=== PATIENT | male | born 1945 | race Caucasian/White ===

== ENCOUNTER → 2016-04-13 | Outpatient (CLI) | payer MEDICARE, OTHER ==
--- NOTE | 2016-04-14 08:52 | MRI ---
EXAM DESCRIPTION: MRI left shoulder. CLINICAL HISTORY: Shoulder pain. Osteoarthritis COMPARISON: None Available. TECHNIQUE: Multi planar, multi sequence MRI evaluation of the left shoulder. FINDINGS: Severe osteoarthritis of the left shoulder. Minimal subluxation of the humeral head relative to the central axis of the glenoid and scapular body. Central scalloping of the glenoid, mild type A2 with circumferential labral degeneration. Full-thickness chondral loss with a couple of small subchondral cysts. Full-thickness chondral loss over the entire humeral head with a 7 mm osteophyte arising from the inferior medial humeral head Supraspinatus tendinosis with moderate grade partial articular and interstitial tear of the mid to posterior tendon. Muscle volume is mildly decreased with grade 1 fatty infiltration Infraspinatus tendinosis with chronic interstitial fissuring at insertion. Resorptive cystic change along the oblique facet greater tuberosity. Mild muscle volume loss with grade 2 fatty infiltration of the muscle Teres minor tendon intact. Mild muscle volume loss with grade 2 fatty infiltration of the muscle Severe subscapularis tendinosis with partial articular and interstitial insertional tear of the upper half of the tendon. The muscle volume is mildly decreased with grade 1 fatty infiltration Subluxation of the long head biceps tendon related to the subscapularis tendon tear with severe tendinosis and interstitial partial tear of the entire intra-articular portion of the tendon and in the upper bicipital groove. Contiguous tear involves the labral anchor and superior labrum. Moderate acromioclavicular osteoarthritis with osteophytes indenting the supraspinatus. Small joint effusion. Lateral downsloping of the acromion IMPRESSION: Severe glenohumeral osteoarthritis with medial/ central glenoid scalloping, type A2 Supraspinatus and infraspinatus tendinosis with partial thickness tear at the insertion High-grade partial articular and interstitial tear of the upper subscapularis tendon insertion with associated biceps tendon subluxation. Severe tendinosis and interstitial partial tear of the long head biceps tendon Electronically signed by: Jesse New MD 04/14/2016 08:50
--- NOTE | 2016-04-14 08:58 | MRI ---
EXAM DESCRIPTION: MRI right shoulder. CLINICAL HISTORY: Shoulder pain. Osteoarthritis. COMPARISON: None Available. TECHNIQUE: Multi planar, multi sequence MRI evaluation of the right shoulder. FINDINGS: Severe glenohumeral osteoarthritis with central glenoid scalloping, severe type B2 glenoid. Complete cartilage loss over the entire humeral head with inferior medial humeral head osteophyte projecting about 15 mm into the axillary recess. Small joint effusion with synovitis and several small intra-articular bodies in the dependent posterior joint, axillary recess and 1 in the subcoracoid recess Supraspinatus insertional tendinosis with chronic interstitial low-grade partial tear. The muscle volume is moderately decreased with mild grade 2 fatty infiltration Infraspinatus tendinosis and chronic interstitial fissuring with small resorptive cysts along the oblique facet greater tuberosity anteriorly. Mild muscle volume loss with grade 2 fatty infiltration. Teres minor tendon intact with mild muscle volume loss and grade 1 fatty infiltration Subscapularis tendinosis with moderate grade partial interstitial insertional tear. Muscle volume mildly decreased with grade 2 fatty infiltration Biceps tendinosis and interstitial partial tear of the intra-articular portion of the tendon contiguous with tear involving the labral anchor and superior labrum. Circumferential degenerative labral tear Moderate acromioclavicular osteoarthritis with joint effusion and prominent osteophytes indenting the supraspinatus. IMPRESSION: Severe glenohumeral osteoarthritis with type A2 glenoid. Joint effusion, synovitis and multiple small intra-articular bodies Supraspinatus, infraspinatus and subscapularis chronic tendinosis and interstitial partial tear. Volume loss with grade 2 fatty infiltration of the muscles Intra-articular biceps tendinosis/ interstitial partial tear Electronically signed by: Jesse New MD 04/14/2016 08:56
== END | disposition home or self-care (01) ==
LOC: MRI 12:57
PROVIDERS: ATTEND Orthopaedic Surgery
DX: M19.012 Primary osteoarthritis, left shoulder (principal); M19.011 Primary osteoarthritis, right shoulder

== ENCOUNTER → 2019-03-14 | Outpatient (CLI) | payer MEDICARE, OTHER ==
--- NOTE | 2019-03-14 16:43 | RAD ---
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 TECHNIQUE: 1 view. AP supine. Abdomen and pelvis. FINDINGS: 3 well- radiodense objects most likely a cluster of renal stones superimposed over the left renal shadow measuring 1.4 x 1.1 cm. For all 3 stones. Fecal matter throughout the included colon mostly proximal and mid colon more gas distal colon. No distended gas-filled segments of small bowel or colon. Radiodense object approximately 1 cm diameter superimposed over the inferior cecum. Calcifications in surgical clips in the pelvis. Lumbar levoscoliosis. Upper lumbar dextroscoliosis. Multiple enthesophytes on the pelvis. Arthrosis and joint space narrowing more on the right hip than the left.. IMPRESSION: Cluster of 3 radiodense stones superimposed over the upper left renal shadow. Correlate with clinical history. Constipation proximal and mid colon. No gas-filled distended segments of bowel. Diffuse spondylosis and scoliosis in the lumbar spine. Electronically signed by: Jose Gurrola MD 03/14/2019 4:41 PM PLACEMENT INTERVIEWER
== END ==
LOC: RAD 12:54
PROVIDERS: ATTEND Urology
DX: C61 Malignant neoplasm of prostate (principal); C67.2 Malignant neoplasm of lateral wall of bladder; N52.9 Male erectile dysfunction, unspecified; N40.1 Benign prostatic hyperplasia with lower urinary tract symptoms; N20.0 Calculus of kidney; K59.00 Constipation, unspecified; M47.896 Other spondylosis, lumbar region; M41.86 Other forms of scoliosis, lumbar region

== ENCOUNTER → 2019-04-24 | Outpatient (CLI) | payer MEDICARE, OTHER ==
--- NOTE | 2019-04-26 17:36 | MRI ---
EXAM DESCRIPTION: Lumbar Spine w/o Contrast : Magnetic Resonance Imaging. CLINICAL HISTORY: spondylolysis COMPARISON: MRI scan lumbar spine without contrast February 2016. TECHNIQUE: Multiplanar, multiple standard sequences, non contrast MRI, lumbar spine. FINDINGS: L5-S1: The disc is well visualized on axial T2 series 501, image 3. Moderate disc space loss with mild endplate reactive changes. Desiccated disc gas in the disc space. Anterior bulging and spurs. Grade 1 retropulsion 5 mm. Disc remnant bulge is posterior to the superior S1 endplate impressing on the right subarticular recess and the right S1 nerve. Similar appearance on the prior study. No significant degenerative changes in the posterior flavum ligaments and facet joints (posterior elements). No canal stenosis. Severe right foraminal narrowing and left foraminal stenosis with disc spur complex encroaching on the left foramen and left L5 nerve. L4-L5: Disc desiccation and minimal disc space loss more to the right of midline with endplate Schmorl's nodes and moderate reactive changes. Disc spur complex encroaching on the foramen which is severely narrowed, abutting the right L5 nerve. No posterior disc bulge. Grade 1 anterolisthesis 4 mm. Moderate degenerative hypertrophy of the posterior elements more on the right. AP canal diameter 11 mm. Moderate narrowing left foramen moderate to severe narrowing right foramen with disc spur complex encroaching on the foramen and abutting the right L4 nerve. Calcification versus desiccated disc gas in the disc. No change from the prior study. L3-L4: Disc desiccation with anterior bulging and endplate ridging. Grade 1 retrolisthesis 2 mm. Posterior broad-based disc bulge. Moderate degenerative hypertrophy of the posterior elements more right than left. Right posterior protrusion of the disc migrating downward with stenosis of the right subarticular recess and encroachment on the right L4 nerve. Broad mild endplate reactive changes posteriorly and right of midline. Disc spur complex and hypertrophic facet encroaching on the right foramen with mild stenosis. Significant progression since the prior study. Mild to moderate narrowing of the left foramen. L2-L3: Significant disc space loss in the midline more than the left paramedian upper right paramedian disc space. Anterior and superior Schmorl's nodes. Midline and right of midline moderate endplate reactive changes. Anterior disc bulge with endplate spurs. Posterior midline disc bulge 4 mm with inferior midline tiny disc extrusion impressing on the thecal sac and abutting the descending left L3 nerve. Degenerative hypertrophy of the posterior elements bilaterally. AP canal diameter 10 mm. Mild right foraminal narrowing. Disc osteophyte complex encroaching on the left foramen and the left L2 nerve with borderline stenosis. Stable since the prior study. L1-L2: Disc desiccation with disc space maintained and no bulging. Degenerative hypertrophy of the posterior elements. No bulging. Canal and foramina are patent. Conus terminates at this level. No change from the prior study. Circumscribed hyperintense T1 and T2 hemangioma posterior L1 vertebral body stable. T12-L1: Normal signal in the disc with disc space preserved. Minimal hypertrophic degeneration of the posterior elements. Canal and foramina are patent. Stable since the prior study. L3-S1 levoscoliosis. Paravertebral soft tissues minimal paraspinal muscle atrophy.. Distal cord normal signal and caliber. Otherwise heterogeneous marrow signal in the remaining vertebral bodies and the posterior elements. Vertebral bodies are not compressed at any level. IMPRESSION: 1. Multiple levels of disc desiccation, disc space loss, degenerative hypertrophy of the posterior flavum ligaments and facet joints, bulging discs, and bilateral or lateral spondylosis. 2. Left side spondylosis L5-S1 with disc spur complex encroaching on the left foramen and left L5 nerve. Grade 1 retrolisthesis. Disc remnant bulge posteriorly into the right impressing on the right subarticular recess. No change from the prior study. 3. Spondylosis at L4-5 with posterior element degenerative hypertrophy and right side spondylosis with disc spur complex encroaching on the foramen and the right L4 nerve. Stable since the prior study. 4. Spondylosis posteriorly into the right of midline has progressed significantly since the prior study with right side disc spur complex and hypertrophic right facet joint encroaching on the right foramen and right L3 nerve with mild stenosis. Also stenosis of the right subarticular recess and encroachment on the right L4 nerve, unfavorable interval change since the prior study. 5. Borderline mild central canal stenosis at L2-3 with midline and right paracentral spondylosis and possible posterior midline extruded disc inferiorly. No significant change. Disc space loss has increased since the prior study. Electronically signed by: Jose Gurrola MD 04/26/2019 5:35 PM TRICHOLOGIST
== END ==
LOC: MRI 13:30
PROVIDERS: ATTEND Pain Medicine Interventional Pain Medicine
DX: M43.06 Spondylolysis, lumbar region (principal); M47.817 Spondylosis without myelopathy or radiculopathy, lumbosacral region; M51.86 Other intervertebral disc disorders, lumbar region; M51.36 Other intervertebral disc degeneration, lumbar region; M46.96 Unspecified inflammatory spondylopathy, lumbar region; M24.28 Disorder of ligament, vertebrae; M25.78 Osteophyte, vertebrae; M48.061 Spinal stenosis, lumbar region without neurogenic claudication

== ENCOUNTER 2019-08-19 09:28 | Observation (INO) | payer MEDICARE, OTHER ==
--- NOTE | 2019-08-19 10:21 | RAD ---
EXAM DESCRIPTION: Chest,1 View CLINICAL HISTORY: 74 years Male, anemia, fatigue COMPARISON: None. FINDINGS: There is mild cardiomegaly. Poststernotomy changes are demonstrated. A dual chamber transvenous pacemaker is noted on the left. The lung daly are clear of active infiltrates. The pulmonary vascularity is unremarkable. No active pleural disease is present. IMPRESSION: 1. Mild cardiomegaly. 2. No active infiltrates. Electronically signed by: Wilfrid Argueta MD 08/19/2019 10:20 AM CDT
[2019-08-19] MEDS ORDERED: diphenhydrAMINE HCL 25 MG CAP PO ONE (10:42)
[2019-08-19] MEDS ORDERED: predniSONE 20 MG TAB PO ONE (10:42)
[2019-08-19] MEDS ORDERED: ACETYLCYSTEIN 20 % 6,000 MG/30 ML VIAL PO ONE (11:27)
--- NOTE | 2019-08-19 12:08 | CT ---
CT abdomen and pelvis with IV contrast HISTORY: Suspected bleed, anemia. This exam was performed according to our departmental dose-optimization program which includes automated exposure control, adjustment of the mA and/or kVp according to patient size and/or use of iterative reconstruction technique where applicable. FINDINGS: Visualized lung bases are within normal limits. Liver, spleen, pancreas, gallbladder and adrenal glands are within normal limits. No biliary dilatation. No hydronephrosis. Left renal upper pole calculi are noted, measuring 1.4 x 1.2 cm. Left renal dense cortical lesion is noted measuring 1.5 cm. No dilated loops of bowel to suggest obstruction. Mild amount of stool in the colon. The appendix is normal. No free fluid or free air. No abdominal or pelvic lymphadenopathy. Abdominal aorta moderately calcified without aneurysm. Bladder is unremarkable. IMPRESSION: No acute disease. No acute urinary obstruction. No evidence for abdominal or retroperitoneal hemorrhage. Nonobstructive left renal calculus. Left renal cortical dense lesion is indeterminate on this study. Recommend follow-up renal ultrasound and CT abdomen within without IV contrast, on a nonemergent basis for further evaluation. Electronically signed by: Dangelo Le MD 08/19/2019 12:06 PM CDT
[2019-08-19] MEDS ORDERED: SODIUM CHLORIDE 0.9% 250ML 250 ML ONE (12:45)
--- NOTE | 2019-08-19 12:48 | ED.PDOC ---
History of Present Illness - General Chief Complaint: Respiratory Problem Stated Complaint: sob, dizzy Time Seen by Provider: 08/19/19 09:36 Source: patient Exam Limitations: no limitations - History of Present Illness Initial Comments: The patient is a 74-year-old male presented emergency room secondary to a 3 to 4-month history of feeling fatigued with occasional dizziness. He also reports mild intermittent palpitations. No current chest pain. No syncope. He has had a couple of near syncopal episodes. No focal neurological changes. He has been on Xarelto for a couple of years now for his atrial fibrillation. He does have a pacemaker in place and is in a paced rhythm of 72 bpm. The patient has apparently had 2 CABGs in the past and had his tricuspid v alve worked on as well. He reports that he is also had a stroke in the past but has few residual deficits. The patient was actually sent here by his maintenance groundskeeper due to anemia that was found on the blood work yesterday. He saw his maintenance groundskeeper yesterday who did the blood work and response to the symptoms as listed above, and he was told to come in here once the results were obtained. The patient apparently just had a colonoscopy back in March in the [facility]. He has not had any history of any GI bleeds in the past. He is not having any belly pain. No vomiting of any blood or coffee-ground material. No passage of any blood or melena in the stools. No blood in the urine and no bleeding from the gums. No history of spontaneous bleeding. No history of iron deficiency. Timing/Duration: other - 3 to 4 months Severity: moderate Improving Factors: immobilization Worsening Factors: movement Associated Symptoms: malaise, shortness of breath, weakness - Generalized Allergies/Adverse Reactions: Allergies Acetaminophen [From Percocet] Allergy (Verified 04/23/15 15:05) Oxycodone [From Percocet] Allergy (Verified 04/23/15 15:05) IV contrast Allergy (Mild, Uncoded 08/19/19 09:58) Home Medications: Ambulatory Orders Atorvastatin Calcium [Lipitor] 80 mg PO DAILY 04/23/15 Ezetimibe [Zetia] 10 mg PO DAILY 04/23/15 Lisinopril 2.5 mg PO DAILY 04/23/15 Tamsulosin [Flomax] 0.4 mg PO QD 04/23/15 Xarelto 20 mg PO DAILY 04/23/15 Aspirin [Aspirin Childrens] 81 mg PO DAILY 08/19/19 Azelastine HCl-Fluticasone Pro [Dymista] 1 spr NA BID 08/19/19 Cyanocobalamin [Vitamin B-12] 1,000 mcg PO DAILY 08/19/19 Docusate Sodium [Dulcolax Stool Softener] 100 mg PO DAILY 08/19/19 Dronedarone HCl [Multaq] 400 mg PO BID 08/19/19 Furosemide [Lasix] 40 mg PO DAILY 08/19/19 Ibuprofen 800 mg PO PRN PRN 08/19/19 Omeprazole 20 mg PO DAILY 08/19/19 Potassium Chloride Microencaps [Potassium Chloride Cr] 10 meq PO DAILY 08/19/19 Pregabalin [Lyrica] 75 mg PO TID 08/19/19 Thiamine HCl [Vitamin B-1] 250 mg PO DAILY 08/19/19 Review of Systems - Review of Systems Constitutional: States: malaise, weakness - Generalized EENTM: States: no symptoms reported Respiratory: States: short of breath Cardiology: States: palpitations Gastrointestinal/Abdominal: States: no symptoms reported Genitourinary: States: no symptoms reported Musculoskeletal: States: no symptoms reported Skin: States: no symptoms reported Neurological: States: no symptoms reported Endocrine: States: no symptoms reported All other Systems: No Change from Baseline Past Medical History (General) - Patient Medical History Hx Seizures: No Hx Stroke: Yes Hx Dementia: No Hx Asthma: No Hx of COPD: No Hx Cardiac Disorders: Yes - CAD,Atrial fib/flutter Hx Congestive Heart Failure: Yes Hx Pacemaker: Yes Hx Hypertension: No Hx Thyroid Disease: No Hx Diabetes: No Hx Gastroesophageal Reflux: No Hx Renal Disease: No Hx Cancer: Yes - Prostate,Bladder Hx of HIV: No Hx MRSA: No Surgical History: angioplasty, pacemaker, tonsillectomy - Vaccination History Hx Influenza Vaccination: No Hx Pneumococcal Vaccination: Yes - Social History Hx Tobacco Use: Yes - quit in 1975 Hx Alcohol Use: No Family Medical History - Family History Father Family History: Unknown Living Status: Unknown Physical Exam - Physical Exam General Appearance: Alert, No apparent distress Eye Exam: bilateral normal Ears, Nose, Throat: hearing grossly normal, normal ENT inspection Neck: full range of motion, supple Respiratory: lungs clear, normal breath sounds, no respiratory distress, no accessory muscle use Cardiovascular/Chest: normal peripheral pulses, no edema, other - Regular rate but a paced rhythm at 72 bpm. Peripheral Pulses: radial,right: 2+, radial,left: 2+ Gastrointestinal/Abdominal: non tender - Obese, soft Rectal Exam: deferred Back Exam: no CVA tenderness Extremity: normal range of motion - Given mild chronic limitations, non-tender, no pedal edema, no calf tenderness, normal capillary refill Neurologic: personnel adviser II-XII nml as tested, alert, normal mood/affect, oriented x 3 Skin Exam: pallor Comments: Vital Signs - 24 hr 08/19/19 08/19/19 08/19/19 09:43 10:29 10:50 Temperature 98.5 F Pulse Rate [ 72 66 72 Left Radial] Respiratory 26 H 16 26 H Rate Blood Pressure 132/58 140/51 [Left Arm] O2 Sat by Pulse 99 96 Oximetry 08/19/19 08/19/19 08/19/19 11:00 12:00 12:39 Temperature 98.4 F 97.7 F Pulse Rate [ 63 66 62 Left Radial] Respiratory 22 20 16 Rate Blood Pressure 136/64 152/67 141/63 [Left Arm] O2 Sat by Pulse 98 99 100 Oximetry Progress - Progress Progress: 08/19/19 12:52 The patient is a 74-year-old male presented emergency room secondary to symptomatic anemia. No evidence of any active GI bleeding. Based on his significant drop in MCV since his last check, this is most consistent with a long-term process. Still most likely is a very very slow GI bleed given that he is currently on Xarelto. The patient apparently had a scope back in March but will likely need to be set up with another one in the coming weeks. Given that he is symptomatic and has a significant cardiac history we are going to go ahead and transfuse him with 2 units of packed red blood cells. He has been premedicated with prednisone and Benadryl. No Tylenol as he is allergic. He has not been given any diuretic yet. His dose of Xarelto and atorvastatin were held this morning only. Stool guaiacs will need to be done. A haptoglobin and reticulocyte count are still pending as is a urinalysis. Iron panel is consistent with iron deficiency. He will need iron replacement therapy over the coming months. Additionally, incidentally found on the CT scan is a left small renal lesion that will need additional imaging as an outpatient. Admit for transfusion. The patient reports he already has appointment with his osha inspector this coming Wednesday or further plans can be made. Vital signs have remained stable. Continue telemetry monitoring. otto [email or web address] - Results/Orders Results/Orders: 08/19/19 10:02 UA [URINALYSIS] Stat 08/19/19 10:12 RETICULOCYTE COUNT Stat and haptoglobin counts are send out labs 08/19/19 10:15 EKG STAT shows a ventricularly paced rhythm at 72 bpm. Telemetry shows occasional PACs and PVCs. Laboratory Results - last 24 hr 08/19/19 08/19/19 08/19/19 10:11 10:11 10:11 WBC 6.1 RBC 3.25 L Hgb 6.3 L* Hct 21.1 L MCV 65.0 L MCH 19.3 L MCHC 29.7 L RDW 19.3 H Plt Count 280 MPV 7.9 Absolute Neuts (auto) 4.70 Absolute Lymphs (auto) 0.80 L Absolute Monos (auto) 0.40 Absolute Eos (auto) 0.10 Absolute Basos (auto) 0.10 Neutrophils % 77.2 Lymphocytes % 13.3 L Monocytes % 6.0 Eosinophils % 2.4 Basophils % 1.1 PT 15.8 H INR 1.60 H PTT (SP) 32.1 H Sodium 136 Potassium 3.5 L Chloride 101 Carbon Dioxide 24 Anion Gap 14.5 BUN 26 H Creatinine 1.15 BUN/Creatinine Ratio 22.6 H Random Glucose 145 H Serum Osmolality 279.3 Calcium 8.4 Iron TIBC Iron Saturation Total Bilirubin 0.4 AST 18 ALT 15 Alkaline Phosphatase 56 Creatine Kinase 118 CK-MB (CK-2) 1.5 CK-MB (CK-2) % Not Reportable Troponin I < 0.02 B-Natriuretic Peptide 151.0 H Serum Total Protein 6.9 Albumin 4.0 Globulin 2.9 Albumin/Globulin Ratio 1.4 TSH Patient ABO/Rh Antibody Screen Crossmatch 08/19/19 08/19/19 08/19/19 10:11 10:11 11:06 WBC RBC Hgb Hct MCV MCH MCHC RDW Plt Count MPV Absolute Neuts (auto) Absolute Lymphs (auto) Absolute Monos (auto) Absolute Eos (auto) Absolute Basos (auto) Neutrophils % Lymphocytes % Monocytes % Eosinophils % Basophils % PT INR PTT (SP) Sodium Potassium Chloride Carbon Dioxide Anion Gap BUN Creatinine BUN/Creatinine Ratio Random Glucose Serum Osmolality Calcium Iron 14 L TIBC 456.4 H Iron Saturation 3.00 L Total Bilirubin AST ALT Alkaline Phosphatase Creatine Kinase CK-MB (CK-2) CK-MB (CK-2) % Troponin I B-Natriuretic Peptide Serum Total Protein Albumin Globulin Albumin/Globulin Ratio TSH 2.69 Patient ABO/Rh O POSITIVE Antibody Screen Negative Crossmatch See Detail Chest x-ray shows the pacemaker. No obvious acute fluid overload. No obvious pneumonia. CT of abdomen pelvis with contrast shows no etiology for the anemia. He does have fairly large kidney stone on the left that is nonobstructing and a small renal lesion to the left cortex that will need a follow-up ultrasound and possibly additional CT imaging. - EKG/XRAY/CT CT Ordered: No Departure - Departure Clinical Impression: Symptomatic anemia, Iron deficiency Disposition: Admit Patient Condition: Poor Departure Forms: ED Discharge - Pt. Copy, Patient Portal Self Enrollment Referrals: LUCIE WHITTAKER [Primary Care Provider] - 1-2 Weeks Home Medications: Ambulatory Orders Atorvastatin Calcium [Lipitor] 80 mg PO DAILY 04/23/15 Ezetimibe [Zetia] 10 mg PO DAILY 04/23/15 Lisinopril 2.5 mg PO DAILY 04/23/15 Tamsulosin [Flomax] 0.4 mg PO QD 04/23/15 Xarelto 20 mg PO DAILY 04/23/15 Aspirin [Aspirin Childrens] 81 mg PO DAILY 08/19/19 Azelastine HCl-Fluticasone Pro [Dymista] 1 spr NA BID 08/19/19 Cyanocobalamin [Vitamin B-12] 1,000 mcg PO DAILY 08/19/19 Docusate Sodium [Dulcolax Stool Softener] 100 mg PO DAILY 08/19/19 Dronedarone HCl [Multaq] 400 mg PO BID 08/19/19 Furosemide [Lasix] 40 mg PO DAILY 08/19/19 Ibuprofen 800 mg PO PRN PRN 08/19/19 Omeprazole 20 mg PO DAILY 08/19/19 Potassium Chloride Microencaps [Potassium Chloride Cr] 10 meq PO DAILY 08/19/19 Pregabalin [Lyrica] 75 mg PO TID 08/19/19 Thiamine HCl [Vitamin B-1] 250 mg PO DAILY 08/19/19 Decision To Admit - Decistion To Admit Decision to Admit Reason: Medical Nature Decision to Admit Date: 08/19/19 Decision to Admit Time: 12:55
--- NOTE | 2019-08-19 13:09 | HP ---
SUPERVISING PHYSICIAN: Jorge Jones MD CHIEF COMPLAINT: Dizziness, shortness of breath. HISTORY OF PRESENT ILLNESS: Mr. Holloway is a 74 year-old male patient who presented to the Emergency Room today complaining of 3 to 4 months of just not feeling well, fatigued and some occasional dizziness. He endorses that he has had intermittent palpitations but no actual chest pains, no actual syncope. He has had a couple of near syncopal episodes, denies any focal motor deficits. He is on Xarelto for a couple of years due to atrial fibrillation but does have a pacemaker in place and is 100% paced rhythm initially. He also has had 2 coronary artery bypass grafts along with a tricuspid valve modification. He has also had a stroke but no apparent residual deficits. He was referred to the Emergency Room today by his retail loan originator assistant due to anemia that was found on the workup he had yesterday. He was seeing his retail loan originator assistant due to his symptoms and was told when they found his results of his hemoglobin and hematocrit, to come to the Emergency Room for further evaluation and possible transfusions. His initial H&H in the Emergency Room was 6.3 and 21.1 respectively. Platelet counts were normal at 208,000. He denies any actual GI problems from the past. He denies any abdominal pain, nausea or vomiting, coffee-ground emesis, bright red blood per rectum or melanotic stools. No history of any iron-deficiency anemia. His vital signs showed he was stable with a blood pressure of 132/58 with oxygen saturation of 99. Respirations were 16 to 26, heart rate of 72, he was afebrile at 98.5. Given his severe anemia and symptoms including dizziness and presyncopal episodes, he is going to be transfused 2 units of packed red blood cells and will need further workup as an outpatient. He is going to be placed in observation for continuation of transfusion with anticipation of discharge tomorrow. He was placed in observation in stable condition. PAST MEDICAL HISTORY: 1. Polyneuropathy in his feet. 2. Prostate cancer followed by his urologist, Dr. Amos Maldonado in [place]. Initial diagnosis was in 2008. 3. Chronic back pain. 4. Cervical degenerative disk disease. 5. Diabetes mellitus type 2 on diet therapy only. 6. Atrial flutter initially in 2012 with multiple ablations and pacemaker implantation in 2018. 7. Mini-stroke in 2016 with no residual effects. PAST SURGICAL HISTORY: 1. Tonsils and adenoids in 1950. 2. Angioplasty in 1987 and 1994 with one stent placement. 3. Coronary artery bypass graft in 2009 x4. 4. Removal of cancerous tissue in the bladder in 2013. 5. Open heart surgery for removal of fibroid from left valve and anuloplasty ring on the right tricuspid in 2016. 6. Right shoulder replacement in 2017. 7. Pacemaker implant in 2018. 8. Left shoulder replacement in 2019. 9. Facet injections and ablation in lower back for sciatica, L3 through S1. CURRENT MEDICATIONS: 1. Thiamine 250 mg daily. 2. Omeprazole 20 mg daily. 3. Dulcolax stool softener, 100 mg daily. 4. Vitamin B12, 1000 mcg daily. 5. Aspirin 81 mg daily. 6. Ibuprofen 800 mg p.r.n. as needed. 7. Multaq 400 mg b.i.d. 8. Dronedarone. 9. Potassium chloride Microencaps 10 mEq daily. 10. Lyrica 75 mg t.i.d. 11. Lasix 40 mg daily. 12. Dymista 1 spray in both nostrils b.i.d. 13. Lisinopril 2.5 mg daily. 14. Zetia 10 mg daily. 15. Lipitor 80 mg daily. 16. Xarelto 20 mg daily. 17. Flomax 0.4 mg daily. ALLERGIES: Acetomorphine, oxycodone, IV contrast. FAMILY HISTORY: Grandmother at age 75 secondary to myocardial infarction. Mother at 86. Father at 84 from prostate cancer. He has no siblings and no children. SOCIAL HISTORY: The patient lives at with his . He is retired from [employer]. He has a history of smoking but quit approximately in 1975. He does not drink alcohol or use illicit drugs. REVIEW OF SYSTEMS: CONSTITUTIONAL: Denies general malaise, fevers, weakness associated with anemia. HEENT: Denies headaches. vision changes, sore throat. nasal congestion, earaches. CHEST: Positive for shortness of breath, denies wheezing or coughing, hemoptysis. HEART: Denies chest pain, notes some palpitations but does have a pacemaker. ABDOMEN: Denies nausea, vomiting, diarrhea or constipation., abdominal pain or bowel habit changes. GENITOURINARY: Denies dysuria, hematuria or polyuria. MUSCULOSKELETAL: Denies arthralgias, joint swelling. SKIN: Denies lesions, rashes, moles or unexplained changes. NEUROLOGIC: No reported syncope, had some presyncopal episodes but denies ataxia, seizures or focal motor deficits. HEMATOLOGICAL: Denies unexplained bleeding, easy bruising or transfusion reactions. PHYSICAL EXAMINATION: GENERAL: The patient appears to be in no acute distress, he is alert, well- nourished, well-hydrated. HEENT: Tympanic membranes are clear bilaterally. Oropharynx pink and moist without any lesions. NECK: Supple, non-tender, full range of motion, no jugular venous distention. CHEST: Lung sounds clear to auscultation bilaterally without any rhonchi, rales, or wheezes. CARDIOVASCULAR: Regular rate and rhythm without appreciable murmurs, gallops, or rubs. Showing a paced rhythm at 72 on the bedside monitor. ABDOMEN: Obese but soft, non-tender, positive bowel sounds. RECTAL: Exam deferred. BACK: No CVA or vertebral tenderness. EXTREMITIES: No cyanosis, clubbing, or edema. NEUROLOGIC: Cranial nerves II through XII are grossly intact. Facial features were symmetrical. Extraocular movements within normal limits. There is no nystagmus, he is alert and oriented x3. LABORATORY: White count 6,100, hemoglobin 6.3, hematocrit 21.1. RBC indices indicate a microcytic hypochromic presentation, platelet count 280,000. Retic and haptoglobin are pending. Coagulation studies, he is on Xarelto so PT/PTT were elevated. Chemistries showed a mildly low potassium of 3.5, BUN 26, creatinine 1.15, iron workup showed iron to be at 15, TIBC 456 with iron saturation of 3. Liver functions all within normal limits. Troponin less than 0.02. TSH 2.69. Urinalysis showed a trace of lysed blood, otherwise was unremarkable. RADIOLOGY: Abdominal/pelvis CT per radiology interpretation with contrast showed o acute disease, no acute urinary obstruction, no evidence of abdominal or retroperitoneal hemorrhage. There was mention of a nonobstructing left renal calculus. EKG showed a paced rhythm 100% ventricularly. ASSESSMENT: 1. Symptomatic anemia likely underlying iron-deficiency anemia, not currently under treatment with no evidence of acute loss but patient is on Xarelto. 2. History of chronic atrial fibrillation with multiple ablations and a pacemaker implantation with patient on chronic anticoagulation. 3. Diabetes mellitus type 2 on oral therapy. 4. History of prostate cancer followed by Urology in [place]. 5. Iron-deficiency anemia with current labs and patient not on any current treatment. 6. Mild electrolyte imbalance with a mild hypokalemia. 7. Mild renal insufficiency likely prerenal azotemia from hypovolemia from anemia. 8. Microhematuria with patient having a history of kidney stones and prostate cancer with patient followed by Urology with no current signs or symptoms or complications. PLAN: Mr. Holloway is going to placed in observation for transfusion of 2 units of packed red blood cells. We will resume his home medications once those have been updated and verified. He did get Lasix after the second unit. We will check an H&H in the morning and anticipate he will be discharged after that unit is complete. We will hold his Xarelto at this point and will need to take not consideration his risk factors and probably Xarelto back tomorrow. He will need to be started on some iron therapy, will start with initial oral and he will followup with his primary care physician and retail loan originator assistant for further management. We will go ahead and do occult blood if he has any stools. Until we can transition him to outpatient management which hopefully will be tomorrow if the units of packed red blood cells are complete, we will continue to monitor and treat as needed. We anticipate his length of stay to be at least 24 hours, possibly longer, but I again anticipate he will discharge tomorrow after we repeat his labs. Once discharged, he will need close followup for further treatment of the underlying anemia. #[id number] [facility]
[2019-08-19] MEDS ORDERED: SODIUM CHLORIDE 0.9% (FLUSH) 10 ML SYG IV PRN (14:49)
[2019-08-19] MEDS ORDERED: GLUCAGON INJ 1 MG VIAL SUBCU PRN (14:49)
[2019-08-19] MEDS ORDERED: ONDANSETRON INJ 4 MG/2 ML VIAL IV PRN (14:49)
[2019-08-19] MEDS ORDERED: DEXTROSE 50% 25 GM/50 ML SYG IV PRN (14:49)
[2019-08-19] MEDS ORDERED: IV SET AND CAP CHANGE INJ INJ SCH (15:00)
[2019-08-19] MEDS ORDERED: IBUPROFEN 400 MG TAB PO PRN (15:30)
[2019-08-19] MEDS: PREGABALIN 75 MG CAP PO SCH ×2 (18:07→21:32)
[2019-08-19] MEDS: INSULIN LISPRO 100 UNITS/ML PEN SUBCU SCH ×2 (18:14→21:32)
[2019-08-19] MEDS ORDERED: ATORVASTATIN 20 MG TAB PO ONE (19:01)
[2019-08-19] MEDS ORDERED: ATORVASTATIN 20 MG TAB PO SCH (21:00)
[2019-08-19] MEDS: [UNRECOGNIZED DRUG - OTHER] SCH (21:47)
[2019-08-19] MEDS: DRONEDARONE HCL 400 MG PO SCH (21:53)
[2019-08-20] MEDS ORDERED: OMEPRAZOLE CAP 20 MG CAP ONE (04:52)
[2019-08-20] MEDS ORDERED: OMEPRAZOLE CAP 20 MG CAP PO SCH (06:30)
[2019-08-20] MEDS ORDERED: LISINOPRIL 5 MG TAB PO SCH (09:00)
[2019-08-20] MEDS ORDERED: EZETIMIBE 10 MG TAB PO SCH (09:00)
[2019-08-20] MEDS ORDERED: THIAMINE HCL 100 MG TAB PO SCH (09:00)
[2019-08-20] MEDS ORDERED: DOCUSATE SODIUM 100 MG CAP PO SCH (09:00)
[2019-08-20] MEDS ORDERED: ASPIRIN (CHEWABLE) 81 MG TAB PO SCH (09:00)
[2019-08-20] MEDS: INSULIN LISPRO 100 UNITS/ML PEN SUBCU SCH (09:09)
[2019-08-20] MEDS: [UNRECOGNIZED DRUG - OTHER] SCH (09:10)
[2019-08-20] MEDS: PREGABALIN 75 MG CAP PO SCH (09:11)
[2019-08-20] MEDS: DRONEDARONE HCL 400 MG PO SCH (09:11)
[2019-08-20 10:43] VITALS: BP 149/68; TEMP 98.3; O2SAT 99
--- NOTE | 2019-08-28 11:39 | DS ---
SUPERVISING PHYSICIAN: Juan J Jones MD ADMISSION DIAGNOSIS: 1. Symptomatic anemia likely underlying iron-deficiency anemia, not currently under treatment with no evidence of acute loss but patient is on Xarelto. 2. History of chronic atrial fibrillation with multiple ablations and a pacemaker implantation with patient on chronic anticoagulation. 3. Diabetes mellitus type 2 on oral therapy. 4. History of prostate cancer followed by Urology in [place]. 5. Iron-deficiency anemia with current labs and patient not on any current treatment. 6. Mild electrolyte imbalance with a mild hypokalemia. 7. Mild renal insufficiency likely prerenal azotemia from hypovolemia from anemia. 8. Microhematuria with patient having a history of kidney stones and prostate cancer with patient followed by Urology with no current signs or symptoms or complications. DISCHARGE DIAGNOSIS: 1. Symptomatic anemia secondary to iron-deficiency anemia, needing further workup as an outpatient, with no acute loss on admission with the patient receiving 2 units of packed red blood cells with the patient having a history of being on Xarelto. 2. History of chronic atrial fibrillation with history multiple ablations and a current pacemaker implantation, currently 100% paced, with patient on needing chronic anticoagulation with Xarelto. 3. Diabetes mellitus, type 2, on oral therapy. 4. History of prostate cancer followed by Urology in [place]. 5. Iron-deficiency anemia based on current labs with the patient not having any current treatment or previous workup and needing further workup as an outpatient. 6. Mild electrolyte imbalance with hypokalemia, resolving. 7. Mild renal insufficiency due to prerenal azotemia from hypovolemia from anemia, improving with packed red blood cells. 8. Microhematuria with patient having a history of kidney stones and prostate cancer being followed by Urology with no current signs or symptoms or complications with the patient on Xarelto. REASON FOR ADMISSION: Mr. Holloway is a 74 year-old male patient who presented to the Emergency Room today complaining of 3 to 4 months of just not feeling well, fatigued and some occasional dizziness. He endorses that he has had intermittent palpitations but no actual chest pains, no actual syncope. He has had a couple of near syncopal episodes, denies any focal motor deficits. He is on Xarelto for a couple of years due to atrial fibrillation but does have a pacemaker in place and is 100% paced rhythm initially. He also has had 2 coronary artery bypass grafts along with a tricuspid valve modification. He has also had a stroke but no apparent residual deficits. He was referred to the Emergency Room today by his cotton tier due to anemia that was found on the workup he had yesterday. He was seeing his cotton tier due to his symptoms and was told when they found his results of his hemoglobin and hematocrit, to come to the Emergency Room for further evaluation and possible transfusions. His initial H&H in the Emergency Room was 6.3 and 21.1 respectively. Platelet counts were normal at 208,000. He denies any actual GI problems from the past. He denies any abdominal pain, nausea or vomiting, coffee-ground emesis, bright red blood per rectum or melanotic stools. No history of any iron-deficiency anemia. His vital signs showed he was stable with a blood pressure of 132/58 with oxygen saturation of 99. Respirations were 16 to 26, heart rate of 72, he was afebrile at 98.5. Given his severe anemia and symptoms including dizziness and presyncopal episodes, he is going to be transfused 2 units of packed red blood cells and will need further workup as an outpatient. He is going to be placed in observation for continuation of transfusion with anticipation of discharge tomorrow. He was placed in observation in stable condition. LABORATORY: Hemoglobin on admission was 6.3, hematocrit 21.1. RBC indicated a microcytic/hypochromic anemia. Retic count 1.5, absolute retic count 46,800, haptoglobin 202. After 2 units of packed red blood cells prior to discharge, his hemoglobin was 7.4 and hematocrit 24.3. Coagulation studies did show abnormalities, but the patient is on Xarelto. Please see those reports for details. Admission CMP showed just a mildly low potassium of 3.5. Creatinine was 1.15. Blood sugars ranged between 110 and 200. Iron was 14. TIBC 456, iron saturation 3. Creatinine was slightly elevated at 1.1, but his BUN was elevated at 26. TSH was normal 2.69. Urinalysis just showed a trace of lysed blood. MICROBIOLOGY: No specimens submitted. RADIOLOGY: He had a chest x-ray in the ER prior to admission and per radiologic interpretation showed no active infiltrates, just mild cardiomegaly. He had an abdominopelvic CT and per radiologic interpretation showed no acute disease, no acute urinary obstruction, no evidence of abdominal or retroperitoneal hemorrhage. Nonobstructive renal calculus was noted. There was left renal cortical dense lesion, intermediate, on this study. Recommend further followup with ultrasound and CT of the abdomen with IV contrast, non-emergent. HOSPITAL COURSE: Mr. Holloway was admitted for transfusion of 2 units of packed red blood cells and close monitoring given that he was symptomatic. His vital signs on admission did show he was stable with temperature 98.5, pulse 72, blood pressure 132/58, respirations 26, saturation 99% on room air. He was showing 100% paced rhythm, ventricularly paced, on the monitor. DISCHARGE ASSESSMENT: VITAL SIGNS: Temperature 98.3, pulse 76, blood pressure 149/68, respirations 18, saturation 99% on room air after 2 units of packed red blood cells. CHEST: Clear to auscultation. HEART: Regular rate and rhythm. ABDOMEN: Soft, nontender. Positive bowel sounds. EXTREMITIES: No edema. NEUROLOGIC: Alert and oriented x3. Again, he was clinically improved after receiving 2 units of packed red blood cells and was no longer being symptomatic and it was felt he could continue with outpatient management. We did hold the Xarelto overnight to make sure he did not have any acute bleeding going on and there was found there was no acute bleed at that time. It was felt his risk factors of stopping Xarelto versus resuming were higher, therefore, his Xarelto was continued on discharge, but he had instructions to have a H&H drawn within 24 to 48 hours of discharge or return to the Emergency Room should he have any concerning symptoms. PLAN: Mr. Holloway was discharged on 08/20/19 with instructions to followup with labs post discharge, to have an H&H drawn. I did start him on ferrous gluconate daily. He will need followup with his primary care provider as an outpatient as well as hematology workup in regards to iron deficiency anemia. He was instructed to resume his Xarelto and all other medications prior to hospitalization. In regards to the CT and findings on the left kidney, those can be followed up with CT as an outpatient through his primary care provider's office. Diet was diabetic diet as tolerated. Activity to increase as tolerated. MEDICATIONS PRESCRIBED ON DISCHARGE: 1. Iron supplement p.o. CONDITION ON DISCHARGE: Stable and improved. DISPOSITION: The patient was discharged to followup with his primary care provider. #[id number] [facility]
== END 2019-08-20 10:10 | disposition home or self-care (01) ==
LOC: ER 09:28 → MS 13:08
PROVIDERS: ADMIT Nurse Practitioner Family; ATTEND Nurse Practitioner Family
DX: D50.9 Iron deficiency anemia, unspecified (principal); I48.20 Chronic atrial fibrillation, unspecified; E11.42 Type 2 diabetes mellitus with diabetic polyneuropathy; E87.6 Hypokalemia; E87.8 Other disorders of electrolyte and fluid balance, not elsewhere classified; N28.9 Disorder of kidney and ureter, unspecified; E86.1 Hypovolemia; R31.29 Other microscopic hematuria; I45.4 Nonspecific intraventricular block; I25.10 Atherosclerotic heart disease of native coronary artery without angina pectoris; G89.29 Other chronic pain; I50.9 Heart failure, unspecified; N20.0 Calculus of kidney; I51.7 Cardiomegaly; Z79.01 Long term (current) use of anticoagulants; Z79.82 Long term (current) use of aspirin; Z79.899 Other long term (current) drug therapy; Z95.0 Presence of cardiac pacemaker; Z85.46 Personal history of malignant neoplasm of prostate; Z87.442 Personal history of urinary calculi; Z86.73 Personal history of transient ischemic attack (TIA), and cerebral infarction without residual deficits; Z95.5 Presence of coronary angioplasty implant and graft; Z95.1 Presence of aortocoronary bypass graft; Z96.611 Presence of right artificial shoulder joint; Z96.612 Presence of left artificial shoulder joint; Z87.891 Personal history of nicotine dependence; Z88.5 Allergy status to narcotic agent; Z91.041 Radiographic dye allergy status; Z85.51 Personal history of malignant neoplasm of bladder; Z82.49 Family history of ischemic heart disease and other diseases of the circulatory system; Z80.42 Family history of malignant neoplasm of prostate
CPT/HCPCS: 96372; Q0163; J7512; J7050; J1815; 82553; 80053; 82948 ×3; 85014; 85018; 36415 ×5; 81001; 85025; 82550; 83010; 85730; 85610; 85045; 84443; 84484; 83880; 83540; 83550; 36416 ×2; 71045; 74177; P9016 ×2; 86922; 86900; 86901; 86850; 36430; 94760 ×3; 99285; 93005; G0378

== ENCOUNTER → 2019-08-22 | Outpatient (CLI) | payer MEDICARE, OTHER | LOC: LAB.O 13:26 | PROVIDERS: ATTEND Nurse Practitioner Family | DX: D64.9 Anemia, unspecified (principal); I50.9 Heart failure, unspecified ==

== ENCOUNTER → 2019-12-08 | Outpatient (CLI) | payer MEDICARE, OTHER ==
--- NOTE | 2019-12-11 07:48 | RAD ---
Frontal and lateral views of the right tibia/fibula. Indication: LOWER LEG PAIN Comparison: None Impression: Scattered vascular calcifications. Surgical arpit in the medial right knee. Osteoarthritic changes of the right knee and ankle noted. No acute fracture of the right tibia or fibula. Electronically signed by: Kali Jamison MD 12/11/2019 7:46 AM CDT
--- NOTE | 2019-12-11 07:48 | RAD ---
EXAM DESCRIPTION: Tibia/Fibula,Left CLINICAL HISTORY: LOWER LEG PAIN COMPARISON: None. IMPRESSION: 2 views of the left tibia and fibula show no acute fracture, focal bone destruction, or joint dislocation. Moderate vascular calcifications are seen. Electronically signed by: Jaiden Gonzalez MD 12/11/2019 7:46 AM CDT
== END ==
LOC: RAD 13:31
PROVIDERS: ATTEND Internal Medicine
DX: I70.293 Other atherosclerosis of native arteries of extremities, bilateral legs (principal); M17.11 Unilateral primary osteoarthritis, right knee; M19.071 Primary osteoarthritis, right ankle and foot; Z98.890 Other specified postprocedural states

== ENCOUNTER 2020-01-01 14:18 | Emergency (ER) | payer MEDICARE, OTHER ==
[2020-01-01] MEDS ORDERED: TRANEXAMIC ACID 1,000 MG/10 ML VIAL ONE (14:39)
[2020-01-01 14:53] VITALS: TEMP 98.8
[2020-01-01] MEDS ORDERED: TETANUS,DIPHTHERIA,PERTUSSIS 1 EA SYG IM ONE (14:53)
--- NOTE | 2020-01-01 15:07 | ED.PDOC ---
History of Present Illness - General Chief Complaint: Skin/Abrasion/Tear Stated Complaint: Abrasion left knee Time Seen by Provider: 01/01/20 14:20 Source: patient, RN notes reviewed, Vital Signs reviewed, family - wift Exam Limitations: no limitations - History of Present Illness Initial Comments: Patient is a 74-year-old white male who presents with recurrent bleeding of his left knee. Patient is on Xarelto and took a fall yesterday and scraped his left knee and has had continuous bleeding since that time. Patient denies any dizziness, blurry vision, headaches, chest pain, shortness of breath, weakness, fatigue, nausea, vomiting or diarrhea. He has minimal pain in the left knee. Is throbbing in nature. Is worse with palpation. Is better when is left alone. There is no radiation of the pain. Occurred: yesterday Severity: mild Pain Location: lower extremity - left knee Method of Injury: fall Improving Factors: rest Worsening Factors: nothing, rest Loss of Consciousness: no loss of consciousness Associated Symptoms (Fall): denies symptoms Allergies/Adverse Reactions: Allergies Acetaminophen [From Percocet] Allergy (Verified 04/23/15 15:05) Oxycodone [From Percocet] Allergy (Verified 04/23/15 15:05) IV contrast Allergy (Mild, Uncoded 08/19/19 09:58) Home Medications: Ambulatory Orders Atorvastatin Calcium [Lipitor] 80 mg PO DAILY 04/23/15 Ezetimibe [Zetia] 10 mg PO DAILY 04/23/15 Lisinopril 2.5 mg PO DAILY 04/23/15 Tamsulosin [Flomax] 0.4 mg PO QD 04/23/15 Xarelto 20 mg PO DAILY 04/23/15 Aspirin [Aspirin Childrens] 81 mg PO DAILY 08/19/19 Azelastine HCl-Fluticasone Pro [Dymista 137-50 Mcg/Act] 1 spr NA BID 08/19/19 Cyanocobalamin [Vitamin B-12] 1,000 mcg PO DAILY 08/19/19 Docusate Sodium [Dulcolax Stool Softener] 100 mg PO DAILY 08/19/19 Dronedarone HCl [Multaq] 400 mg PO BID 08/19/19 Furosemide [Lasix] 40 mg PO DAILY 08/19/19 Ibuprofen 800 mg PO PRN PRN 08/19/19 Omeprazole 20 mg PO DAILY 08/19/19 Potassium Chloride Microencaps [Potassium Chloride Cr] 10 meq PO DAILY 08/19/19 Pregabalin [Lyrica] 75 mg PO TID 08/19/19 Thiamine HCl [Vitamin B-1] 250 mg PO DAILY 08/19/19 Ferrous Gluconate [Iron] 256 mg PO DAILY #30 tab 08/20/19 Review of Systems - Review of Systems Constitutional: States: no symptoms reported, see HPI. Denies: chills, fever, malaise, weakness EENTM: States: no symptoms reported. Denies: eye pain, blurred vision, double vision Respiratory: States: no symptoms reported. Denies: cough, short of breath Cardiology: States: no symptoms reported. Denies: chest pain, palpitations, syncope Gastrointestinal/Abdominal: Denies: abdominal pain, diarrhea, nausea, vomiting Genitourinary: States: no symptoms reported Musculoskeletal: States: other - Left knee pain Skin: States: other - Bleeding abrasion left knee Neurological: States: no symptoms reported. Denies: tingling, tremors, weakness Endocrine: States: no symptoms reported. Denies: increased hunger, increased thirst, increased urine Hematologic/Lymphatic: States: see HPI, easy bleeding, easy bruising All other Systems: No Change from Baseline Past Medical History (General) - Patient Medical History Hx Seizures: No Hx Stroke: Yes Hx Dementia: No Hx Asthma: No Hx of COPD: No Hx Cardiac Disorders: No Hx Congestive Heart Failure: Yes Hx Pacemaker: Yes Hx Hypertension: No Hx Thyroid Disease: No Hx Diabetes: No Hx Gastroesophageal Reflux: No Hx Renal Disease: No Hx Cancer: No Hx of HIV: No Hx Hepatitis C: No Hx MRSA: No Surgical History: coronary bypass surgery, tonsillectomy - Vaccination History Hx Tetanus, Diphtheria Vaccination: No Hx Influenza Vaccination: No Hx Pneumococcal Vaccination: Yes - Social History Hx Tobacco Use: Yes Hx Alcohol Use: No Family Medical History - Family History Father Family History: Unknown Living Status: Unknown Physical Exam - Physical Exam General Appearance: Alert, Comfortable, Well Developed, Well Groomed, Well Hydrated, Well Nourished Head Injury: no evidence of injury Eye Exam: bilateral normal ENT Exam: hearing grossly normal, no dental injury Neck Exam: non-tender, full range of motion, normal alignment Cardiovascular/Respiratory: regular rate, rhythm, no M/R/G, normal peripheral pulses, no JVD, normal breath sounds, no respiratory distress Gastrointestinal/Abdominal: normal bowel sounds, non tender, soft Back Exam: normal inspection, no CVA tenderness, no vertebral tenderness Extremity Exam: normal range of motion, other - Left knee abrasion with continuous oozing of blood. No crepitus or step-offs. Neurologic: tree care foreman II-XII nml as tested, no motor/sensory deficits, alert, normal mood/affect, oriented x 3 Skin Exam: other - Left knee abrasion - Gracie Coma Score Best Eye Response ([place]): (4) open spontaneously Best Verbal Response ([place]): (5) oriented Best Motor Response ([place]): (6) obeys commands Gracie Total: 15 Progress - Progress Progress: Differential diagnosis: Skin tear, skin abrasion, iatrogenic bleeding, anemia secondary to medication among others. 01/01/20 15:49 Bleeding is markedly reduced after using TXA soaked gauze and pressure on the wound. Patient has had a TXA gauze soaked and then pressed now upon the wound zulma Howe for discharge home. H&H is good and therefore, I am unconcerned in regards to anemia. Patient to follow-up with PCP in the next day or 2. I discussed the plan of care with the patient and his and they voiced understanding and agreement. Twan Randall M.D. #[id number] - Results/Orders Results/Orders: Laboratory Results - last 24 hr 01/01/20 15:05 Hgb 12.1 L Hct 35.6 L Vital Signs 01/01/20 01/01/20 14:48 15:19 Temperature 98.8 F Pulse Rate [ 60 66 Right Radial] Respiratory 60 H 16 Rate Blood Pressure 154/58 131/55 [Left Arm] O2 Sat by Pulse 97 97 Oximetry Departure - Departure Clinical Impression: Bleeding from wound, Drug-induced bleeding disorder, Abrasion Fall Qualifiers: Encounter type: initial encounter Qualified Code(s): W19.XXXA - Unspecified fall, initial encounter Time of Disposition: 15:51 Disposition: Discharge to Home or Self Care Condition: Good Departure Forms: ED Discharge - Pt. Copy, Patient Portal Self Enrollment Instructions: DI for Abrasion, Wound Care (DC), Skin Abrasions (DC) Diet: resume usual diet Activity: increase activity as tolerated Referrals: LUCIE WHITTAKER [Primary Care Provider] - 1-5 Days Home Medications: Ambulatory Orders Atorvastatin Calcium [Lipitor] 80 mg PO DAILY 04/23/15 Ezetimibe [Zetia] 10 mg PO DAILY 04/23/15 Lisinopril 2.5 mg PO DAILY 04/23/15 Tamsulosin [Flomax] 0.4 mg PO QD 04/23/15 Xarelto 20 mg PO DAILY 04/23/15 Aspirin [Aspirin Childrens] 81 mg PO DAILY 08/19/19 Azelastine HCl-Fluticasone Pro [Dymista 137-50 Mcg/Act] 1 spr NA BID 08/19/19 Cyanocobalamin [Vitamin B-12] 1,000 mcg PO DAILY 08/19/19 Docusate Sodium [Dulcolax Stool Softener] 100 mg PO DAILY 08/19/19 Dronedarone HCl [Multaq] 400 mg PO BID 08/19/19 Furosemide [Lasix] 40 mg PO DAILY 08/19/19 Ibuprofen 800 mg PO PRN PRN 08/19/19 Omeprazole 20 mg PO DAILY 08/19/19 Potassium Chloride Microencaps [Potassium Chloride Cr] 10 meq PO DAILY 08/19/19 Pregabalin [Lyrica] 75 mg PO TID 08/19/19 Thiamine HCl [Vitamin B-1] 250 mg PO DAILY 08/19/19 Ferrous Gluconate [Iron] 256 mg PO DAILY #30 tab 08/20/19
[2020-01-01 15:57] VITALS: BP 128/62; O2SAT 95
== END 2020-01-01 15:57 | disposition home or self-care (01) ==
LOC: ER 14:18
DX: S80.212A Abrasion, left knee, initial encounter (principal); D68.32 Hemorrhagic disorder due to extrinsic circulating anticoagulants; I50.9 Heart failure, unspecified; Z95.1 Presence of aortocoronary bypass graft; Z95.0 Presence of cardiac pacemaker; Z86.73 Personal history of transient ischemic attack (TIA), and cerebral infarction without residual deficits; Z79.82 Long term (current) use of aspirin; Z79.01 Long term (current) use of anticoagulants; W19.XXXA Unspecified fall, initial encounter; Y92.9 Unspecified place or not applicable

== ENCOUNTER → 2020-03-15 | Outpatient (CLI) | payer MEDICARE, OTHER | LOC: LAB.O 13:24 | PROVIDERS: ATTEND Plastic Surgery | DX: Z01.810 Encounter for preprocedural cardiovascular examination (principal); Z01.812 Encounter for preprocedural laboratory examination; Z01.811 Encounter for preprocedural respiratory examination; D03.59 Melanoma in situ of other part of trunk ==

== ENCOUNTER → 2020-04-19 | Outpatient (CLI) | payer MEDICARE, OTHER | LOC: LAB.O 13:52 | PROVIDERS: ATTEND Plastic Surgery | DX: Z01.810 Encounter for preprocedural cardiovascular examination (principal); Z01.811 Encounter for preprocedural respiratory examination; Z01.812 Encounter for preprocedural laboratory examination; Z79.01 Long term (current) use of anticoagulants; I48.91 Unspecified atrial fibrillation; R73.09 Other abnormal glucose; E78.5 Hyperlipidemia, unspecified ==